=== PATIENT | male | born 1930 | race African-American/Black ===

== ENCOUNTER → 2017-05-04 | Outpatient (CLI) | payer MEDICARE, BC ==
[~2017-05-04] MED LIST: ACET500C42 PO; AMLO10TA80 PO; ATOR20TA65 PO; BICA50TA2 PO; BRIM.2 BOTHEYE; DONE5TAB33 PO
[2017-05-04 16:28] LABS: BASOPHILS % 1.3 % (0.0-2.0); EOSINOPHILS % 1.7 % (0.0-5.0); HEMATOCRIT. 32.5 % (42.0-52.0); HEMOGLOBIN. 10.2 g/dL (14.0-18.0); LYMPHOCYTES % 20.3 % (20.0-50.0); MEAN CORPUSCULAR HEMOGLOBIN 28.4 pg (28.0-32.0); MEAN CORPUSCULAR VOLUME 90.2 fL (80.0-94.0); MEAN PLATELET VOLUME 8.4 fl (7.4-10.4); NEUTROPHILS % 69.7 % (40.0-76.0); PLATELET 346 x1000/uL (130-400); RED BLOOD CELL COUNT 3.61 mill/uL (4.7-6.1)
[2017-05-04 16:36] LABS: PARTIAL THROMBOPLASTIN TIME 24.5 sec (23.4-31.0)
== END | disposition home or self-care (01) ==
LOC: LAB 15:47
PROVIDERS: ATTEND Radiology Radiation Oncology
DX: C20 Malignant neoplasm of rectum (principal); Z79.01 Long term (current) use of anticoagulants
CPT/HCPCS: 36415; 85025; 85610; 85730

== ENCOUNTER → 2017-05-11 | Day surgery (SDC) | payer MEDICARE, BC ==
[~2017-05-11] VITALS: Ht 177.8 cm; Wt 62.1 kg
[2017-05-11] VITALS (9 sets, daily range): BP systolic 112–143; BP diastolic 49–89
[~2017-05-11] MED LIST changes: +FENTANYL CITRATE/PF 50MCG/ML 2ML VIAL IV ONE; +FENTANYL CITRATE/PF 50MCG/ML 2ML VIAL ONE; +LIDOCAINE HCL 1% 20ML VIAL (Pyxis) INJ ONE; +SODIUM BICARBONATE 4% (2.4MEQ) 5ML VIAL IV ONE
[2017-05-11 13:50] LABS: HEMATOCRIT 29.9 % (42.0-52.0); HEMOGLOBIN 9.8 g/dL (14.0-18.0)
== END | disposition home or self-care (01) ==
LOC: RAD 08:29
PROVIDERS: ATTEND Radiology Radiation Oncology
DX: K76.9 Liver disease, unspecified (principal)
CPT/HCPCS: 36415; 47000; 74150; 76705; 77012; 85014; 85018; 88307; C1769; J3010; J3490